=== PATIENT | male | born 1945 | race Caucasian/White ===

== ENCOUNTER 2019-08-15 17:21 | Emergency (ER) | payer OTHER, MEDICARE ==
[~2019-08-15] VITALS: Ht 177.8 cm; Wt 104.8 kg
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
[2019-08-15 19:01] VITALS: BP 112/70
== END 2019-08-15 19:05 | disposition home or self-care (01) ==
LOC: ER 17:21
DX: S80.02XA Contusion of left knee, initial encounter (principal); S90.01XA Contusion of right ankle, initial encounter; V49.88XA Car occupant (driver) (passenger) injured in other specified transport accidents, initial encounter; Y93.89 Activity, other specified; Y92.488 Other paved roadways as the place of occurrence of the external cause; Y99.8 Other external cause status
CPT/HCPCS: 73552; 73562; 73610; 99284